=== PATIENT | female | born 1955 | race Caucasian/White ===

== ENCOUNTER 2018-01-04 07:54 | Outpatient (CLI) | payer OTHER | END 2018-01-04 07:58 | disposition home or self-care (01) | LOC: SONOGRAMA 07:54 | DX: C07 Malignant neoplasm of parotid gland (principal) ==

== ENCOUNTER → 2020-05-07 | Outpatient (CLI) | payer OTHER | END | disposition home or self-care (01) | LOC: SONOGRAMA 10:02 → EDSEX 10:02 | PROVIDERS: ATTEND Urology | DX: Q61.8 Other cystic kidney diseases (principal); N28.89 Other specified disorders of kidney and ureter; R31.21 Asymptomatic microscopic hematuria ==

== ENCOUNTER → 2020-05-09 10:32 | Outpatient (CLI) | payer OTHER | END | disposition home or self-care (01) | LOC: LAB 10:32 | PROVIDERS: ATTEND Urology | DX: R97.21 Rising PSA following treatment for malignant neoplasm of prostate (principal); R31.0 Gross hematuria ==

== ENCOUNTER 2020-08-15 07:52 | Outpatient (CLI) | payer OTHER | END 2020-08-15 08:00 | disposition HB | LOC: TOM 07:52 | PROVIDERS: ATTEND Urology | DX: N40.1 Benign prostatic hyperplasia with lower urinary tract symptoms (principal); R31.21 Asymptomatic microscopic hematuria ==

== ENCOUNTER 2020-09-12 12:27 | Outpatient (CLI) | payer OTHER | END 2020-09-12 12:34 | disposition home or self-care (01) | LOC: LAB 12:27 | PROVIDERS: ATTEND Radiology Diagnostic Radiology | DX: N20.0 Calculus of kidney (principal) ==

== ENCOUNTER 2021-01-14 09:12 | Outpatient (CLI) | payer OTHER | END 2021-01-14 09:19 | disposition home or self-care (01) | LOC: SONOGRAMA 09:12 | PROVIDERS: ATTEND Internal Medicine Cardiovascular Disease | DX: N64.59 Other signs and symptoms in breast (principal) ==

== ENCOUNTER 2021-01-16 09:49 | Outpatient (CLI) | payer OTHER | END 2021-01-16 09:54 | disposition home or self-care (01) | LOC: TOM 09:49 | PROVIDERS: ATTEND Urology | DX: D35.02 Benign neoplasm of left adrenal gland (principal); D35.01 Benign neoplasm of right adrenal gland; Q61.02 Congenital multiple renal cysts; R31.21 Asymptomatic microscopic hematuria; N40.1 Benign prostatic hyperplasia with lower urinary tract symptoms | CPT/HCPCS: 74170; Q9965 ==

== ENCOUNTER 2022-02-25 09:53 | Outpatient (CLI) | payer OTHER | END 2022-02-25 10:03 | disposition home or self-care (01) | LOC: TOM 09:53 | DX: M54.2 Cervicalgia (principal) ==

== ENCOUNTER 2022-04-02 11:10 | Outpatient (CLI) | payer OTHER | END 2022-04-02 11:20 | disposition home or self-care (01) | LOC: TOM 11:10 | PROVIDERS: ATTEND Psychiatry & Neurology Pain Medicine | DX: R42 Dizziness and giddiness (principal); R56.9 Unspecified convulsions; S06.9X0S Unspecified intracranial injury without loss of consciousness, sequela ==